=== PATIENT | male | born 1950 | race Caucasian/White ===

== ENCOUNTER 2018-03-22 11:28 | Emergency (ER) | payer BC, MEDICARE ==
--- NOTE | 2018-03-22 13:04 | EDM.PDOC ---
ED HPI GENERAL MEDICAL PROBLEM - General Chief Complaint: Neuro Symptoms/Deficits Stated Complaint: Left sided weakness Time Seen by Provider: 03/22/18 12:15 Source of Information: Reports: Patient, EMS, EMS Notes Reviewed, Old Records, Other History Limitations: Reports: Altered Mental Status - History of Present Illness INITIAL COMMENTS - FREE TEXT/NARRATIVE: This is a 67yo M with history of hyperlipidemia and BPH brought in by EMS for left sided weakness. Patient's states she noticed him slump over around 11: 15am and called EMS when he was unable to get up and had slurred speech. Patient had no other symptoms or signs of illness. No recent trauma, no other health concerns. He does take an aspirin daily. Onset: Sudden Onset Date: 03/22/18 Onset Time: 11:15 Duration: Constant Location: Reports: Face, Upper Extremity, Left, Lower Extremity, Left Severity: Severe Improves with: Reports: None Worsens with: Reports: None - Related Data Allergies Allergy/AdvReac Type Severity Reaction Status Date / Time No Known Allergies Allergy Verified 02/08/13 09:06 Home Meds: Home Meds Aspirin 325 mg PO DAILY 02/14/13 [History] Finasteride 5 mg PO DAILY 02/14/13 [History] Simvastatin 20 mg PO DAILY 02/14/13 [History] Tamsulosin HCl 0.4 mg PO DAILY 02/14/13 [History] ED ROS GENERAL - Review of Systems Review Of Systems: ROS reveals no pertinent complaints other than HPI. ED EXAM, NEURO - Physical Exam Exam: See Below Exam Limited By: Altered Mental Status General Appearance: Alert, WD/WN Eye Exam: Right Eye: EOMI, Bilateral Eye: PERRL Ears: Normal External Exam Nose: Normal Inspection Throat/Mouth: Normal Inspection Respiratory/Chest: No Respiratory Distress, Lungs Clear, Normal Breath Sounds Cardiovascular: Normal Peripheral Pulses, Irregularly Irregular GI/Abdominal: Normal Bowel Sounds Neurological: Alert, Other (left face drooping, left arm paralysis, left leg paralysis, no feeling of the left face arm and leg) Extremities: Normal Inspection Psychiatric: Normal Affect, Normal Mood Skin Exam: Warm, Dry, Intact Course - Orders/Labs/Meds Orders: Active Orders 24 hr Category Date Time Status EKG Documentation Completion [RC] ASDIRECTED Care 03/22/18 12:04 Ordered Head wo Cont [CT] Stat Exams 03/22/18 11:41 Ordered Labs: Laboratory Tests 03/22/18 03/22/18 03/22/18 Range/Units 12:20 12:20 12:20 WBC 8.3 D (4.0-11.0) K/uL RBC 5.48 (4.50-6.50) M/uL Hgb 16.2 (13.0-18.0) g/dL Hct 49.3 (40.0-54.0) % MCV 90 (76-96) fL MCH 29.6 (27.0-32.0) pg MCHC 32.9 (31.0-35.0) g/dL RDW 13.0 (11.0-16.0) % Plt Count 184 (150-400) K/uL MPV 10.6 H (6.0-10.0) fL Neut % (Auto) 53.1 (45.0-70.0) % Lymph % (Auto) 29.3 (20.0-40.0) % [place] % (Auto) 11.4 H (3.0-10.0) % Eos % (Auto) 5.8 H (1.0-5.0) % Baso % (Auto) 0.4 (0.0-0.5) % Neut # (Auto) 4.40 (2.00-7.50) K/uL Lymph # (Auto) 2.43 (1.50-4.00) K/uL [place] # (Auto) 0.94 H (0.20-0.80) K/uL Eos # (Auto) 0.48 H (0.04-0.40) K/uL Baso # (Auto) 0.03 (0.02-0.10) K/uL PT 10.8 (9.0-11.5) sec INR 1.1 (1.0-3.5) APTT 23.4 L (24.4-33.2) SECONDS Sodium 141 (136-145) mmol/L Potassium 4.3 (3.5-5.1) mmol/L Chloride 103 (98-107) mmol/L Carbon Dioxide 28.0 (21.0-32.0) mmol/L Anion Gap 14.3 (5.0-15.0) mmol/L BUN 20 (8-26) mg/dL Creatinine 1.04 (0.70-1.30) mg/dL Est Cr Clr Drug Dosing TNP Estimated GFR (MDRD) > 60 (>60) MLS/MIN BUN/Creatinine Ratio 19.2 (6-25) Glucose 105 H (74-100) mg/dL Calcium 9.3 (8.5-10.1) mg/dL Total Bilirubin 0.6 D (0.0-1.0) mg/dL AST 21 (15-37) U/L ALT 29 (12-78) U/L Alkaline Phosphatase 62 (46-116) U/L Troponin I < 0.017 (0.000-0.060) ng/mL Total Protein 7.0 (6.4-8.2) g/dL Albumin 3.7 (3.4-5.0) g/dL Globulin 3.3 (2.2-4.2) g/dL Albumin/Globulin Ratio 1.1 (0.8-2.0) - Re-Assessments/Exams Free Text/Narrative Re-Assessment/Exam: 03/22/18 13:09 Patient reassessed multiple times with no change in status of left hemiparesis. Departure - Departure Time of Disposition: 13:20 Disposition: DC/Tfer to Acute Hospital 02 Condition: Serious Clinical Impression: Cerebrovascular accident (CVA) Qualifiers: CVA mechanism: thrombosis Precerebral and cerebral artery: middle cerebral artery Laterality of affected vessel: right Qualified Code(s): I63.311 - Cerebral infarction due to thrombosis of right middle cerebral artery - Discharge Information Forms: ED Department Discharge - Problem List & Annotations (1) Cerebrovascular accident (CVA) SNOMED Code(s): 300812414 Code(s): I63.9 - CEREBRAL INFARCTION, UNSPECIFIED Status: Acute Priority : High Current Visit: Yes Qualifiers: CVA mechanism: thrombosis Precerebral and cerebral artery: middle cerebral artery Laterality of affected vessel: right Qualified Code(s): I63.311 - Cerebral infarction due to thrombosis of right middle cerebral artery (2) Left hemiparesis SNOMED Code(s): 447869428 Code(s): G81.94 - HEMIPLEGIA, UNSPECIFIED AFFECTING LEFT NONDOMINANT SIDE Status: Acute Priority: High Current Visit: Yes (3) Facial droop due to acute stroke SNOMED Code(s): 16235991 Code(s): I63.9 - CEREBRAL INFARCTION, UNSPECIFIED; R29.810 - FACIAL WEAKNESS Status: Acute Priority: High Current Visit: Yes (4) Atrial fibrillation by electrocardiogram SNOMED Code(s): 696198524 Code(s): I48.91 - UNSPECIFIED ATRIAL FIBRILLATION Status: Acute Current Visit: Yes Annotation/Comment:: This is a new finding. Patient has no history of atrial fibrillation. - Problem List Review Problem List Initiated/Reviewed/Updated: Yes - My Orders Last 24 Hours: My Active Orders 03/22/18 11:41 Head wo Cont [CT] Stat 03/22/18 12:04 EKG Documentation Completion [RC] ASDIRECTED - Assessment/Plan Last 24 Hours: My Active Orders 03/22/18 11:41 Head wo Cont [CT] Stat 03/22/18 12:04 EKG Documentation Completion [RC] ASDIRECTED Plan: tPA started after CT head done and discussion with Dr. Echevarria. Risks and benefits discussed with patient and . They are in agreement with plan of care. Plan of care discussed with who is anxious and stressed. Discussed plan of care with patient who is alert and oriented. Transfer to acute stroke center [facility] under care of Dr. Echevarria. CD CT head sent with packet. Patient will go via [facility] to [facility] via ER for repeat CT.
--- NOTE | 2018-03-22 13:23 | CT ---
UNENHANCED BRAIN CT, 03/22/18 No priors. Motion artifact degrades image quality. No masses or mass effect. No intracranial hemorrhage. The right middle cerebral artery does appear mildly hyperdense suggesting the possibility of right middle cerebral artery thrombus and occlusion. No findings within the brain parenchyma suggesting acute or subacute infarct. Followup CT or followup MRI scan may be helpful if clinically indicated. There is mucosal thickening of the ethmoid, sphenoid, and maxillary sinuses. There is also fluid in the right maxillary sinus. These findings are consistent with sinusitis. IMPRESSION: Abnormal exam. See above. The patient's physician was notified of the findings by telephone and by [facility] preliminary radiology report. [id number] [facility]
[2018-03-25] MEDS ORDERED: Sodium Chloride 0.9% 1,000 ML IV SCH (06:30)
== END 2018-03-22 13:30 ==
LOC: LB.ED 11:28
DX: I63.311 Cerebral infarction due to thrombosis of right middle cerebral artery (principal); Z79.82 Long term (current) use of aspirin; Z79.899 Other long term (current) drug therapy
CPT/HCPCS: 36415; 70450; 80053; 84484; 85025; 85610; 85730; 93005; 99285; 99285-25; A0425; A0429; J2997; J7030